=== PATIENT | male | born 1980 ===

== ENCOUNTER 2017-03-03 06:10 | Inpatient (IN) | payer OTHER ==
[2017-02-10 09:46] VITALS: BMI 27.1
--- NOTE | 2017-03-02 17:30 | HP ---
The patient is going to be at [facility] on 03/03/2017. HISTORY OF PRESENT ILLNESS: Mr. Styles is a 37-year-old gentleman injured in a construction accident back in 01/2016. He fell off a ladder injuring his low back. He has pain in the low lumbar area, it is centralized. He has a great difficulty bending or even lifting. He has some degree of pain on the left side; his baseline is approximately at 5, it will escalate to 10 on a 0/10 scale. Sometimes, he cannot even get off the bed. He has a great difficulty rising from a sitting position. He denies any overt numbness or weakness. PAST MEDICAL HISTORY: Otherwise unremarkable. ALLERGIES: HE IS ALLERGIC TO PENICILLIN. MEDICATIONS: He denies any medications other than ibuprofen for pain. No prior accidents, no prior problems prior to this injury. He denies any ongoing medical problems. SOCIAL HISTORY: He smokes currently five cigarettes a day. He drinks socially. Treatment has been ongoing physiotherapy. He has had three injections to the lumbar spine. He has also been taking ibuprofen. PHYSICAL EXAMINATION: NEUROLOGIC: He demonstrates 5/5 strength throughout. Sensory exam is within normal limits. Reflexes are 1 to 2+ throughout. Straight leg raise low back and approximately 40 degrees. Baseline gait is within normal limits. He has pain with heel and toe walking. He has a good tandem. Romberg is negative, 10/10 palpation of low lumbar spine. His range of motion is limited in flexion as well as extension with bilateral rotation. MRI of the LS spine documented very impressive radial annular tear in the posterior L5-S1 disk. There was marked desiccation, collapse of disk as well. I discussed with him multiple office visits over the past six months, the possibility of undergoing an L5-S1 decompression, fixation, and fusion. I went over his pathology with him. Discussed the details of the surgical procedure, alternatives, potential risks, complications, realistic chance of success, and recovery time. I answered all of his questions. He fully understood the above and he is now admitted for the L5-S1 TLIF. Edwin Heath MD
[2017-03-03] MEDS ORDERED: Thrombin Topical 20,000 Intl Units Spray Kit TOP ONE (07:27)
[2017-03-03] MEDS ORDERED: Lidocaine 1% w Epi 1:100,000 Inj ONE (07:27)
[2017-03-03] MEDS ORDERED: Absorbable Gelatin Sponge Size 100 ONE (07:27)
[2017-03-03] MEDS ORDERED: Bupivacaine 0.5% Inj(30mL) ONE ×2 (07:28→07:32)
[2017-03-03] MEDS ORDERED: Midazolam 2 MG/2 ML VIAL ONE (07:35)
[2017-03-03] MEDS ORDERED: Rocuronium 10 mg/ml (5 ml) ONE (07:35)
[2017-03-03] MEDS ORDERED: Succinylcholine 200 mg/10 ml Inj IV ONE (07:35)
[2017-03-03] MEDS ORDERED: Propofol 10 mg/ml Inj (20 ML) ONE ×4 (07:36→10:24)
[2017-03-03] MEDS ORDERED: Heparin 10,000 Units/ml ONE ×2 (07:50→07:55)
[2017-03-03] MEDS ORDERED: Sodium Chloride 0.9% 10 ML IV ONE (07:56)
[2017-03-03] MEDS ORDERED: Vancomycin 1 g Inj ONE (08:24)
[2017-03-03] MEDS ORDERED: HYDROmorphone 0.5 mg/0.5 ml ISec IVP PRN ×2 (11:14→11:17)
[2017-03-03] MEDS ORDERED: Lactated Ringer's 1,000 ML IV SCH (11:15)
[2017-03-03] MEDS ORDERED: Liquid Adhesive TOP ONE (11:15)
[2017-03-03] MEDS ORDERED: HYDROmorphone 0.5 mg/0.5 ml ISec ONE (12:47)
--- NOTE | 2017-03-03 12:53 | RAD ---
PROCEDURE: HISTORY: L5-S1 COMPARISON: None TECHNIQUE: Total fluoroscopic time utilized during the procedure: 52.8 seconds. Total dose 40.1 mGy cm squared FINDINGS: Submitted images from the current procedure: For Please refer to the physician's notes performing the procedure. L-5 S-1. For purposes of this report the lowest normal appearing disc space is considered L5-S1. Transitional elements at the lumbosacral junction frontal view are probable COMPARISON: IMPRESSION: Less than 1 hour fluoroscopic time utilized during performance of the procedure
[2017-03-03] MEDS ORDERED: HYDROmorphone 0.5 mg/0.5 ml ISec IVP STA (14:09)
[2017-03-03] MEDS: Dextrose 5%/0.45% NS 1,000 ML IV SCH (14:20)
[2017-03-03] MEDS: HYDROmorphone 0.2 mg/ml (25ml) 25 ML IV PRN (16:11)
[2017-03-03] MEDS ORDERED: Influenza Vaccine 60 mcg/0.5 mL SYR (4YR UP) IM ONE (17:33)
[2017-03-03] MEDS ORDERED: Pneumococcal 23-Valent Vaccine IM ONE (17:33)
[2017-03-04] MEDS: HYDROmorphone 0.2 mg/ml (25ml) 25 ML IV PRN ×4 (00:30→23:01)
[2017-03-04] MEDS: Dextrose 5%/0.45% NS 1,000 ML IV SCH ×2 (00:36→11:54)
--- NOTE | 2017-03-04 08:15 | OP ---
PROCEDURE DATE: 03/03/2017 LOCATION: [facility]. PREOPERATIVE DIAGNOSIS: Lumbar disk derangement L5-S1. POSTOPERATIVE DIAGNOSIS: Lumbar disk derangement L5-S1. PROCEDURE: L5-S1 diskectomy, decompression, interbody fusion, segmental pedicle screw fixation, posterolateral fusion with iliac autograft. SURGEON: Edwin Heath MD CO SURGEON: Jose Alberto Brandon MD TYPE OF ANESTHESIA: General endotracheal. ESTIMATED BLOOD LOSS: 175 mL COMPLICATIONS: None. JUSTIFICATION: The patient is status post on the job accident, ever since when he suffered severe low back pain with associated left leg pain. This has been recalcitrant to conservative treatment, which he failed. MRI documented significant annular tear with disk derangement and foraminal stenosis at L5-S1. The patient was offered operative intervention by diskectomy, interbody fusion and segmental fixation. The nature of this procedure, the rationale behind it, potential risks and complications, realistic chance of success, recovery time, were discussed with him at length. All his questions were answered. He fully understood all the above and elected to proceed as offered. DESCRIPTION OF PROCEDURE: The patient was taken to the operating room. He was hooked up to electrophysiologic monitor. He was carefully intubated and anesthetized. He was placed on the OR table on a Canelo frame in a prone position with maximal flexure at the L5-S1 level. We limited the flexion to as little as possible. We localized the incision with lateral fluoroscopy. The entire low back region was scrubbed with acetone scrub, painted and draped in the usual sterile fashion. After standard prepping and draping, incision was made directly overlying the spinous process of the L4 through S1. Bovie cautery was used to dissect through the fascia and strip the paraspinous muscles off the spinous prosthesis, lamina, L5 through the sacrum. The exposure was widened out laterally bilaterally to expose the entire transverse process and sacral ala bilaterally. Bleeding was controlled throughout with Bovie cautery. At this point, harvestation was performed. A 5-gauge trocar was inserted directly into the superior iliac crest. Approximately 90 mL of marrow was harvested. This was then spun down to obtain the bone marrow and mesenchymal cells, which were later used in the bone grafting procedure. The decompression was begun by removing the top of the sacral spinous process as well as the bottom of the L5. We attempted to keep the interspinous and interlaminar ligament intact. The Leksell was used to remove some further laminar bone. This was then saved for later use in the bone graft. A laminotomy was then made using various-sized Kerrison rongeurs. The inferior two-thirds of the L5 lamina removed. Generous medial facetectomies performed laterally bilaterally. Foraminotomies performed for the exiting L5 root, and the S1 nerve roots were identified and traced in the canal heading medial to the S1 pedicle. We then began the diskectomy, I gently retracting the S1 nerve root medially, the disk was incised grossly and disk materials with the use of curettes and pituitary rongeurs, 8 through 11 mm karin were used to remove all further annulus beginning at the claudication, which was completed with using large curettes. Additionally, we used a down-biting curette to deliver some of the midline herniation into disk space which were removed with pituitary rongeurs. This process was identically performed on the patient's right side after which we packed disk space with bone grafting material which included products of decompression, additional allograft, and mesenchymal impregnated hydroxyapatite sponges. We then tapped a 9 x 11 mm carbon fiber fusion cage directly into the interbody space until it was well seated and countersunk. Attention was returned to the left side, where the identical grafting material and implants were placed. Again visual inspection and lateral fluoroscopy confirmed excellent position of both of these interbody fusion grafts. We then decorticated the lateral surfaces, using the high-speed drill that is the transverse process, the lateral pars, the facet and the sacral ala bilaterally. We then began placement of the pedicle screw, technique was used identifying the pedicular entrance visually and fluoroscopically drilling the cortical surface, passing a gear shift down the barrel of the pedicle into the vertebrae body. Using a ball-tip probe to sound the passage way to ensure that there was no evidence of breach and then placing the appropriate-sized screw additionally. The gearshift and the screws were all stimulated with electrocautery while monitoring EMG activity to ensure there was no evidence of electrophysiological breech. Using this technique, 6.0 diameter screws of 40 mm and 45 mm length placed at L5, and 40 mm length, 7.0 diameter screws placed bilaterally at S1. No screw elicited any EMG activity below 15 milliamps, and both AP and lateral fluoroscopy confirmed superb position of all 4 screws. We then placed the appropriate sized titanium locking rods in the two-screw head receptacles on each side. Locking nut was placed and torque wrenched tight. We then made sure there was no foreign matter or bone in the canal. Later, Gelfoam placed over the dura and a cross-connector between the rods were placed and its 3 locking mechanism torque wrenched tight. Bilateral AP and lateral fluoroscopy showed excellent position of the construct. We then packed all remaining bone grafting material liberally into the lateral gutters on each side. The muscle was reapproximated using interrupted 0 Vicryl. The fascia was closed using a tight interrupted 0 Vicryl stitch. The wound was copiously irrigated with antibiotic solution. The subcutaneous was closed in 2 layers using interrupted 2-0 Vicryl and the skin was closed using running 3-0 Monocryl stitch, Benzoin and Steri-Strips. Dressing was applied. The patient was turned back on to supine position on a stretcher, extubated without difficulty, noted moving all groups of both lower extremities with excellent strength on his way to recovery room. All counts were correct. Neurophysiological monitoring remained stable over the procedure. There were no complications. Edwin Heath MD
--- NOTE | 2017-03-04 14:29 | CP.PCM.PN ---
Subjective - Date & Time of Evaluation Date of Evaluation: 03/04/17 Time of Evaluation: 14:24 - Subjective Subjective: SPINE - POD #1 Pt OOB sitting in chair. Amb w assistance to BR earlier. Complaining of back pain but pre-op L leg pain better. Voiding via chaudhary. No flatus yet. LINE INSTALLER TROLLEY helping control his pain. VSS. Afebrile. Moving LE's actively. Neuro grossly intact. Plan: Pt doing well first post-op day. Will d/c chaudhary in am. Change to oral analgesics in am as well. Lives in 4 story walk-up in [place] so asked Social Service to look into acute rehab placement. Objective - Vital Signs/Intake and Output Vital Signs (last 24 hours): Temp Pulse Resp BP Pulse Ox 98.4 F 95 H 20 137/85 95 03/04/17 07:00 03/04/17 07:00 03/04/17 07:00 03/04/17 07:00 03/04/17 07:00 Intake and Output: 03/04/17 03/04/17 06:59 18:59 Intake Total 240 Output Total 1700 Balance -1460 - Medications Medications: Current Medications Docusate Sodium (Colace) 100 mg PO TID [facility] Last Admin: 03/04/17 09:35 Dose: 100 mg Hydromorphone HCl (Dilaudid) 0.5 mg IVP Q15M PRN PRN Reason: Pain, moderate (4-7) Last Admin: 03/03/17 12:45 Dose: 0.5 mg Dextrose/Sodium Chloride (Dextrose 5%/0.45% Ns 1000 Ml) 1,000 mls @ 100 mls/hr IV .Q10H [facility] Last Admin: 03/04/17 11:54 Dose: 100 mls/hr Hydromorphone HCl (Dilaudid 0.2 Mg/Ml Chicken Hatchery Helper) 25 mls @ 1 mls/hr IV .Q24H PRN; 0.2 MG/HR PRN Reason: MD'S ORDER Last Admin: 03/04/17 08:41 Dose: 1 mls/hr Ondansetron HCl (Zofran Inj) 4 mg IVP ONCE PRN PRN Reason: Nausea/Vomiting Ondansetron HCl (Zofran Inj) 4 mg IVP Q6H PRN PRN Reason: Nausea/Vomiting
[2017-03-05] MEDS: Dextrose 5%/0.45% NS 1,000 ML IV SCH ×2 (04:20→11:43)
[2017-03-05] MEDS: HYDROmorphone 0.2 mg/ml (25ml) 25 ML IV PRN (06:01)
--- NOTE | 2017-03-05 08:15 | OP ---
PROCEDURE DATE: 03/03/2017 PREOPERATIVE DIAGNOSIS: Lumbar disk derangement, herniation at L5-S1. POSTOPERATIVE DIAGNOSIS: Lumbar disk derangement, herniation at L5-S1. PROCEDURES: 1. Posterior lumbar interbody and lateral fusion at L5-S1. 2. Use of intervertebral devices. 3. Use of non-segmental spinal instrumentation. 4. Use of autograft by means of bone marrow aspiration. CO-SURGEONS: Jose Alberto Brandon MD. and Edwin Heath MD. TYPE OF ANESTHESIA: General endotracheal tube intubation. DESCRIPTION OF PROCEDURE: The patient was brought to the operating room and general anesthesia was achieved. Intravenous antibiotics were administered and spinal cord monitoring leads were placed throughout the patient's body. Real time monitoring was done by battery technician in the room and remote monitoring done by a physician as well. Sequential compression boots were placed to each of the patient's legs. Once the antibiotics were administered, a Sanchez catheter was inserted. The patient was then gently transferred onto the operating table, placed prone on a Canelo frame, keeping his abdomen free from pressure anteriorly. Care was taken to protect the elbows and knees from pressure points. A sterile drape was used to seal off the patient's perineal region from the operative field and his back was scrubbed and then sterilely prepped and draped. The level of the incision was noted under fluoroscopy and infiltrated lidocaine with epinephrine. The incision was made sharply in the midline and taken down to subcutaneous tissue using sharp and blunt dissection. Hemostasis was achieved using electrocautery. The fascia was divided and stripped laterally of the spinous processes and lamina out to the level of the L5 transverse processes as well as sacral ala. Soft tissue attachments were cleared using electrocautery and Robles elevator such that we could identify the pars on each side at each level. Fluoroscopic views were taken to confirm we were at the appropriate level. A Leksell rongeur was used to remove the spinous process and thin down the lamina and the laminectomy was then carried out in a caudad-cephalad fashion using Kerrison rongeurs. This was done in the midline and then taken out laterally on each side. Foraminotomies were performed until we could easily pass a [place] tool out each neuroforamina. Laminectomy was extended to the level of the disk space until we could pass a broach to indicate there would be enough room subsequently for passage of the intervertebral devices. Hemostasis was achieved using thrombinated Gelfoam powder as well as bipolar cautery. A trocar was then placed in the posterior right ileum and 90 mL of bone marrow aspirate was obtained. This was sterilely passed to the battery technician who processed it to the harvest system and then returned the collected mesenchymal stem cells back to the OR table. These stem cells were used to soak cubes and strips of CONFIRM sponge as well as process through the IC chamber. The IC chamber bone along with the patient's laminar bone and Optium Putty were combined to create a bone grafting substrate. Thrombinated Gelfoam powder was used for hemostasis at the donor site. We then proceed with interbody fusion. Thecal sac was gently retracted and the annulus was incised and disk material removed using pituitary rongeur and the end plate karin up to and including a size of 11. Ring and spoon curettes were used as well. There was some difficulty in retracting the thecal sac as the patient seemed to have a large centrally located herniation. Once this was removed, there was more mobility to the thecal sac. The right-sided annulus was then incised and remaining disk material removed, again using the end plate karin up to and including a size of 11 along with pituitary rongeur and the ring and spoon curettes. The marrow soaked cubes of CONFIRM along with the bone grafting substrate were packed in to the disk space. A 9 x 11 graft package was then tamped into place and countersunk. We moved back to the left side where the remainder of the marrow soaked cubes along with some more bone grafting substrate were packed into the disk space and another 9 x [address] and countersunk. Visually, they appeared to be in good position. Hemostasis was achieved with thrombinated Gelfoam powder. We then proceed with posterolateral fusion. The high speed drill was used to decorticate the L5 transverse processes and sacral ala on each side as well as the intralaminar spaces in the L5-S1 facet joint. Under fluoroscopic guidance, the entry point for the right L5 pedicle screw was noted under fluoroscopy and drilled down. Gearshift tool was used to create a channel through the pedicle and the bone integrity confirmed with a ball tip probe. A 45 mm x 6.0 EXPEDIUM screw was then inserted. Similar technique was used on the left side using the drill to create the entry point and then using the gearshift tool and the ball tip probe to create and confirm the bony channels through the pedicle and a 6.0 x 40 mm EXPEDIUM screw was inserted on the left. Stimulation of the gearshift tool on each side as well as the shank and top of each screw revealed no electrophysiologic abnormalities. We then moved down to the sacral level, where again under fluoroscopic guidance, the drill was used to create the entry point for each sacral screw and the gearshift tool was used to create the channel. Once a bony integrity was confirmed, a 7.0 x 40 mm screws were inserted on each side. Again stimulation revealed no electrophysiologic abnormalities. Pre-Cut lordotic rods were used to connect the 2 screws on each side. An AP view was taken prior to placement of the ani to confirm that the screws were in good position and this was verified. As mentioned, the rods were then used to connect each pair of screws and caps were appropriately tightened and torqued. The midline was inspected for any debris and irrigated with antibiotic solution. Hemostasis was achieved with thrombinated Gelfoam powder as well as bipolar cautery and then a large piece of solid Gelfoam was used to cover the exposed neural elements. The remaining bone grafting substrate and strips of CONFORM sponge were packed laterally to bridge the decorticated transverse processes to the sacral ala. An A5 CrossLink was used to connect the two rods to add rotational stability and this is appropriately tightened and torqued as well. Final AP and lateral fluoroscopic views showed excellent position of the intervertebral devices and the hardware. The wound was closed in layers with interrupted sutures of 0 Vicryl for the muscle and the fascia. The subcutaneous tissue was copiously irrigated with antibiotic solution and closed in layers with interrupted sutures 0 and 2-0 Vicryl and the skin was approximated with running subcuticular suture of 3-0 Monocryl. Steri-Strips and sterile dressing were applied. The patient was gently transferred back onto his bed in the supine position. He was awaken and extubated. He was taken to recovery room in stable condition, having tolerated the procedure well. He was actively moving all extremities and no prominent electrophysiologic abnormalities were noted at the completion of the case. He had an estimated blood loss of 200 mL and received 1600 mL of crystalloid during the operation. Jose Alberto Brandon MD [facility] # [id number]
[2017-03-05] MEDS: oxyCODONE 20 mg ER Tab (oxyCONTIN) PO SCH ×3 (09:19→23:29)
[2017-03-05] MEDS: Oxycodone/Acetaminophen 5/325 mg Tab PO PRN ×2 (11:40→15:39)
--- NOTE | 2017-03-05 14:04 | CP.PCM.PN ---
Subjective - Date & Time of Evaluation Date of Evaluation: 03/05/17 Time of Evaluation: 14:02 - Subjective Subjective: POD 2 doing well min pain amb in room no stairs yert 5/5 Bles sens intact P aggressive PT - stairs hopeful dc next few days Objective - Vital Signs/Intake and Output Vital Signs (last 24 hours): Temp Pulse Resp BP Pulse Ox 99.3 F 102 H 20 152/83 H 95 03/05/17 08:57 03/05/17 08:57 03/05/17 08:57 03/05/17 08:57 03/05/17 08:57 Intake and Output: 03/05/17 03/05/17 06:59 18:59 Intake Total 1020 Output Total 2500 Balance -1480 - Medications Medications: Current Medications Docusate Sodium (Colace) 100 mg PO TID [facility] Last Admin: 03/05/17 09:19 Dose: 100 mg Dextrose/Sodium Chloride (Dextrose 5%/0.45% Ns 1000 Ml) 1,000 mls @ 100 mls/hr IV .Q10H [facility] Last Admin: 03/05/17 11:43 Dose: 100 mls/hr Ondansetron HCl (Zofran Inj) 4 mg IVP Q6H PRN PRN Reason: Nausea/Vomiting Oxycodone HCl (Oxycontin Extended Release Tab) 20 mg PO Q12 [facility] Last Admin: 03/05/17 09:19 Dose: 20 mg Oxycodone/Acetaminophen (Percocet 5/325 Mg Tab) 1 tab PO Q4H PRN PRN Reason: Pain, Mild (1-3) Stop: 03/08/17 10:01 Last Admin: 03/05/17 11:40 Dose: 1 tab
[2017-03-05] MEDS ORDERED: Magnesium Hydroxide Susp 30 ml UD PO ONE (18:52)
[2017-03-06] MEDS: Dextrose 5%/0.45% NS 1,000 ML IV SCH
[2017-03-06] MEDS ORDERED: Magnesium Hydroxide Susp 30 ml UD PO ONE (01:00)
[2017-03-06] MEDS: Oxycodone/Acetaminophen 5/325 mg Tab PO PRN (04:21)
[2017-03-06 07:49] VITALS: BP 123/83; PULSE 86; RESP 18; TEMP 98.5; O2SAT 97
[2017-03-06] MEDS: oxyCODONE 20 mg ER Tab (oxyCONTIN) PO SCH (09:04)
--- NOTE | 2017-03-06 09:18 | CP.PCM.PN ---
Subjective - Date & Time of Evaluation Date of Evaluation: 03/06/17 Time of Evaluation: 09:15 - Subjective Subjective: SPINE - POD #3 Pt amb in room w rolling walker. Anxious to go home. Voiding, + flatus, but no BM yet. Amb 400' w PT yest, and did 7 steps. VSS. Afeb. Incision clean and dry. Neuro grossly intact. Plan: d/c today Objective - Vital Signs/Intake and Output Vital Signs (last 24 hours): Temp Pulse Resp BP Pulse Ox 98.5 F 86 18 123/83 97 03/06/17 07:30 03/06/17 07:30 03/06/17 07:30 03/06/17 07:30 03/06/17 07:30 Intake and Output: 03/06/17 03/06/17 06:59 18:59 Intake Total 1320 Balance 1320 - Medications Medications: Current Medications Bisacodyl (Dulcolax) 10 mg RC ONCE PRN PRN Reason: Constipation Docusate Sodium (Colace) 100 mg PO TID [facility] Last Admin: 03/05/17 18:10 Dose: 100 mg Dextrose/Sodium Chloride (Dextrose 5%/0.45% Ns 1000 Ml) 1,000 mls @ 100 mls/hr IV .Q10H [facility] Last Admin: 03/06/17 00:00 Dose: Not Given Ondansetron HCl (Zofran Inj) 4 mg IVP Q6H PRN PRN Reason: Nausea/Vomiting Oxycodone HCl (Oxycontin Extended Release Tab) 20 mg PO Q12 [facility] Last Admin: 03/05/17 23:29 Dose: Not Given Oxycodone/Acetaminophen (Percocet 5/325 Mg Tab) 1 tab PO Q4H PRN PRN Reason: Pain, Mild (1-3) Stop: 03/08/17 10:01 Last Admin: 03/06/17 04:21 Dose: 1 tab
--- NOTE | 2017-03-06 13:52 | DS ---
ADMITTING DIAGNOSIS: Lumbar disk derangement, herniation L5-S1. FINAL DIAGNOSIS: Lumbar disk derangement, herniation L5-S1. OPERATIVE PROCEDURE: Posterior lumbar interbody and lateral fusion, L5-S1 that was 03/03/2017 also. HOSPITAL COURSE: The patient was admitted with the above principal diagnosis and underwent the above surgical procedure. He was gradually mobilized physical therapy beginning postoperative day 1. He was on CARPET MEASURER initially and then changed to oral analgesics. By the third postoperative day, he was ambulate with a rolling walker into stairs. Therefore, he is being discharged to home. He is getting prescriptions are OxyContin, Percocet, which he was taking in the hospital. He was called the office on Wednesday to arrange follow up appointment with Dr. Heath. Jose Alberto Brandon MD
== END 2017-03-06 11:40 | disposition home or self-care (01) | DRG 460 ==
LOC: SDAINP 06:10 → EDSTATUS 07:30 → 5RSO 14:01 → 5RNO 14:08
PROVIDERS: ADMIT Neurological Surgery; ATTEND Neurological Surgery
PROC: 0ST40ZZ Resection of Lumbosacral Disc, Open Approach (ICD-10-PCS; 2017-03-03)
PROC: 0QH004Z Insertion of Internal Fixation Device into Lumbar Vertebra, Open Approach (ICD-10-PCS; 2017-03-03)
PROC: 07DR3ZZ Extraction of Iliac Bone Marrow, Percutaneous Approach (ICD-10-PCS; 2017-03-03)
PROC: 0SG30AJ Fusion of Lumbosacral Joint with Interbody Fusion Device, Posterior Approach, Anterior Column, Open Approach (ICD-10-PCS; principal; 2017-03-03 07:30)
DX: M51.26 Other intervertebral disc displacement, lumbar region (principal); F17.210 Nicotine dependence, cigarettes, uncomplicated